=== PATIENT | male | born 1980 | race Caucasian/White ===

== ENCOUNTER 2017-08-14 20:37 | Emergency (ER) | payer OTHER ==
[~2017-08-14] VITALS: Ht 177.8 cm; Wt 108.9 kg
[~2017-08-14 20:37] MED LIST: ACETAMINOPHEN-1 EAC1 PO; ALBUTEROL INHAL17 GM INH; APAP500 PO; AUGMENTIN 875875 MG PO; AZITHROMYCIN 2250 MG PO; BENADRYL25 MG PO; CHERATUSSIN DA480 ML PO; CLEOCIN HCL150 MG PO; DOXYCYCLINE 10100 M1 PO; DOXYCYCLINE 10100 MG PO; HYDROCODONE-AP1 EAC6 PO; HYDROCODONE-APA1 TA1 PO; IBUPROFEN 600600 M1 PO; IBUPROFEN 800800 M1 PO; NEXIUM40 MG; NEXIUM40 MG PO; NOHOMEMEDICATIONS; NORCO 5-325 TA1 EACH PO; PERCOCET PO; PREDNISONE 20 M20 M1 PO; ULTRAM ER100 MG; VENTOLIN HFA 1818 GM INH; ZPAK PO
[2017-08-14 22:44] LABS: ABSOLUTE EOSINOPHILS 0.2 thou/uL (0.0-0.7); ABSOLUTE LYMPHOCYTES 2.8 thou/uL (0.8-5.3); ABSOLUTE MONOCYTES 0.6 thou/uL (0.0-1.2); ABSOLUTE NEUTROPHILS 3.3 thou/uL (1.6-8.1); BASOPHILS 0.5 %; HEMOGLOBIN 15.1 gm/dL (14.0-18.0); LYMPHOCYTES 40.4 %; MCH 31.7 pg (26.0-34.0); MCHC 35.1 g/dL (28.0-37.0); MCV 90.2 fL (80.0-100.0); MONOCYTES 8.7 %; MPV 8.1 fl. (7.2-11.1); NUCLEATED RBCS 0 /100WBC; PLATELET COUNT* 247 thou/uL (150-400); POLYS 47.4 %; RBC 4.76 mil/uL (4.50-6.00); RDW-CV 12.6 % (10.5-14.5)
[2017-08-14 22:52] LABS: URINE BILIRUBIN NEGATIVE (Negative); URINE BLOOD NEGATIVE (Negative); URINE CLARITY CLEAR; URINE COLOR YELLOW; URINE GLUCOSE-RANDOM NEGATIVE (Negative); URINE KETONES NEGATIVE (Negative); URINE LEUKOCYTES-REFLEX NEGATIVE (Negative); URINE NITRITE-REFLEX NEGATIVE (Negative); URINE PROTEIN NEGATIVE (Negative); URINE UROBILINOGEN 0.2 E.U./dl (0.2-1.0)
[2017-08-14 23:18] LABS: CALCIUM 8.4 mg/dL (8.5-10.1); POTASSIUM 3.6 mmol/L (3.5-5.1)
[2017-08-14 23:22] LABS: ALBUMIN 3.7 g/dL (3.4-5.0); TOTAL BILIRUBIN 0.4 mg/dL (<0.1-1.0); TOTAL PROTEIN 6.8 g/dL (6.4-8.2)
[2017-08-15 00:44] VITALS: BP 104/61
== END 2017-08-15 00:47 | disposition home or self-care (01) ==
LOC: M.ERS 20:37
PROVIDERS: Physician Assistant
DX: R10.84 Generalized abdominal pain (principal); K21.9 Gastro-esophageal reflux disease without esophagitis; I25.10 Atherosclerotic heart disease of native coronary artery without angina pectoris; F17.210 Nicotine dependence, cigarettes, uncomplicated; Z90.49 Acquired absence of other specified parts of digestive tract; Z86.14 Personal history of Methicillin resistant Staphylococcus aureus infection; Z88.8 Allergy status to other drugs, medicaments and biological substances; Z88.2 Allergy status to sulfonamides

== ENCOUNTER 2018-02-20 15:30 | Emergency (ER) | payer OTHER ==
[~2018-02-20] VITALS: Ht 177.8 cm; Wt 109.3 kg
[2018-02-20 15:45] LABS: ABSOLUTE BASOPHILS 0.1 thou/uL (0.0-0.2); ABSOLUTE EOSINOPHILS 0.1 thou/uL (0.0-0.7); ABSOLUTE LYMPHOCYTES 2.5 thou/uL (0.8-5.3); ABSOLUTE MONOCYTES 0.4 thou/uL (0.0-1.2); ABSOLUTE NEUTROPHILS 6.2 thou/uL (1.6-8.1); BASOPHILS 0.7 %; EOSINOPHILS 0.7 %; HEMATOCRIT 44.3 % (42.0-52.0); HEMOGLOBIN 15.5 gm/dL (14.0-18.0); MCH 31.3 pg (26.0-34.0); MCHC 35.1 g/dL (28.0-37.0); MCV 89.4 fL (80.0-100.0); MONOCYTES 4.4 %; MPV 7.7 fl. (7.2-11.1); NUCLEATED RBCS 0 /100WBC; PLATELET COUNT* 296 thou/uL (150-400); POLYS 67.2 %; RBC 4.95 mil/uL (4.50-6.00); RDW-CV 12.5 % (10.5-14.5); WBC 9.3 thou/uL (4.0-11.0)
[2018-02-20 15:55] LABS: APTT 28.5 Seconds (25.0-31.3); INR 1.1; PROTIME 10.4 Seconds (9.20-11.50)
[2018-02-20 16:04] LABS: ANION GAP 8 mmol/L (7-16); BUN 7 mg/dL (7-18); CALCIUM 8.5 mg/dL (8.5-10.1); CHLORIDE 103 mmol/L (98-107); CO2 25 mmol/L (21-32); CREATININE 1.1 mg/dL (0.6-1.3); GLUCOSE 145 mg/dL (70-99); POTASSIUM 3.5 mmol/L (3.5-5.1); SODIUM 136 mmol/L (136-145)
[2018-02-20 16:23] LABS: ALBUMIN 3.7 g/dL (3.4-5.0); ALKALINE PHOSPHATASE 52 U/L (46-116); CK-MB MASS 0.7 ng/mL (<0.5-3.6); LIPASE 119 U/L (73-393); NT-PRO BRAIN NAT PEPTIDE 9 pg/mL (<300); SGOT 13 U/L (15-37); SGPT 30 U/L (30-65); TOTAL BILIRUBIN 0.5 mg/dL (<0.1-1.0); TOTAL PROTEIN 7.1 g/dL (6.4-8.2); TROPONIN-I LEVEL <0.06 ng/mL (<0.06)
[2018-02-20 16:34] VITALS: BP 122/78
--- NOTE | 2018-02-21 10:34 | EKG ---
[place] [address] ELECTROCARDIOGRAM REPORT Name: DARREN KEYES [id number] Admission: 02/20/18 Attend Phys: Discharge: 02/20/18 Date of : 84 Report #: [id number] THIS REPORT FOR: //name// [facility] ED Test Date: 2018-02-20 Test Time: 15:31:47 Pat Name: DARREN KEYES Department: Room: Gender: M [employer] Painter: OSBALDO : 1980 Requested By: Zack Hernandez Order Number: [id number] MD: Natan Mccallum Measurements Intervals [place] Rate: 104 P: 45 MN: 169 QRS: 91 QRSD: 112 T: 10 QT: 334 QTc: 440 Interpretive Statements Sinus tachycardia Borderline intraventricular conduction delay Compared to ECG 09/28/2016 16:47:08 Sinus rhythm no longer present Electronically Signed On 02-21-2018 10:34:03 CDT by Natan Mccallum [email or web address] <ELECTRONICALLY SIGNED> By: Natan Mccallum MD, [facility] 02/21/18 1034 1531 30 Natan Mccallum MD, FACC /EPI
== END 2018-02-20 16:36 | disposition home or self-care (01) ==
LOC: M.ERS 15:30
PROVIDERS: Family Medicine
DX: R07.89 Other chest pain (principal); K21.9 Gastro-esophageal reflux disease without esophagitis; I25.10 Atherosclerotic heart disease of native coronary artery without angina pectoris; F17.210 Nicotine dependence, cigarettes, uncomplicated; Z88.2 Allergy status to sulfonamides; Z88.8 Allergy status to other drugs, medicaments and biological substances; Z90.49 Acquired absence of other specified parts of digestive tract; Z86.14 Personal history of Methicillin resistant Staphylococcus aureus infection

== ENCOUNTER 2018-05-29 05:11 | Emergency (ER) | payer OTHER ==
[~2018-05-29] VITALS: Ht 177.8 cm; Wt 93.0 kg
[2018-05-29 06:45] VITALS: BP 113/66
== END 2018-05-29 06:45 | disposition home or self-care (01) ==
LOC: M.ERS 05:11
DX: R51 Headache (principal); R11.2 Nausea with vomiting, unspecified; K21.9 Gastro-esophageal reflux disease without esophagitis; I25.10 Atherosclerotic heart disease of native coronary artery without angina pectoris; F17.210 Nicotine dependence, cigarettes, uncomplicated; Z86.14 Personal history of Methicillin resistant Staphylococcus aureus infection; Z90.49 Acquired absence of other specified parts of digestive tract; Z88.2 Allergy status to sulfonamides; Z88.8 Allergy status to other drugs, medicaments and biological substances

== ENCOUNTER 2018-09-29 11:39 | Emergency (ER) | payer OTHER ==
[~2018-09-29] VITALS: Ht 177.8 cm; Wt 104.3 kg
[2018-09-29 12:55] LABS: ABSOLUTE EOSINOPHILS 0.1 thou/uL (0.0-0.7); ABSOLUTE LYMPHOCYTES 3.6 thou/uL (0.8-5.3); ABSOLUTE MONOCYTES 0.7 thou/uL (0.0-1.2); ABSOLUTE NEUTROPHILS 6.8 thou/uL (1.6-8.1); BASOPHILS 0.4 %; EOSINOPHILS 0.9 %; HEMOGLOBIN 17.9 gm/dL (14.0-18.0); MCH 31.1 pg (26.0-34.0); MCV 88.7 fL (80.0-100.0); NUCLEATED RBCS 0 /100WBC; PLATELET COUNT* 319 thou/uL (150-400); POLYS 60.7 %; RBC 5.75 mil/uL (4.50-6.00); RDW-CV 12.8 % (10.5-14.5); WBC 11.3 thou/uL (4.0-11.0)
[2018-09-29 13:14] LABS: ALBUMIN 4.4 g/dL (3.4-5.0); CALCIUM 9.2 mg/dL (8.5-10.1); CREATININE 1.1 mg/dL (0.6-1.3); POTASSIUM 3.8 mmol/L (3.5-5.1); TOTAL BILIRUBIN 0.6 mg/dL (<0.1-1.0); TOTAL PROTEIN 8.3 g/dL (6.4-8.2)
[2018-09-29 14:02] LABS: URINE BILIRUBIN NEGATIVE (Negative); URINE BLOOD NEGATIVE (Negative); URINE CLARITY CLEAR; URINE COLOR YELLOW; URINE GLUCOSE-RANDOM NEGATIVE (Negative); URINE KETONES NEGATIVE (Negative); URINE LEUKOCYTES-REFLEX NEGATIVE (Negative); URINE NITRITE-REFLEX NEGATIVE (Negative); URINE PROTEIN NEGATIVE (Negative); URINE UROBILINOGEN 0.2 E.U./dl (0.2-1.0)
[2018-09-29] MEDS ORDERED: NORCO 5-325 TA1 EACH PO (14:02)
[2018-09-29] MEDS ORDERED: IBUPROFEN 800800 M1 PO (14:02)
[2018-09-29 14:25] VITALS: BP 120/71
== END 2018-09-29 14:26 | disposition home or self-care (01) ==
LOC: M.ERS 11:39
PROVIDERS: Physician Assistant
DX: R10.31 Right lower quadrant pain (principal); F17.210 Nicotine dependence, cigarettes, uncomplicated; K21.9 Gastro-esophageal reflux disease without esophagitis; I25.10 Atherosclerotic heart disease of native coronary artery without angina pectoris; Z88.2 Allergy status to sulfonamides; Z90.49 Acquired absence of other specified parts of digestive tract; Z88.1 Allergy status to other antibiotic agents; Z88.8 Allergy status to other drugs, medicaments and biological substances

== ENCOUNTER 2019-09-24 13:26 | Emergency (ER) | payer OTHER ==
[~2019-09-24] VITALS: Ht 177.8 cm; Wt 104.3 kg
[2019-09-24 14:25] LABS: ABSOLUTE BASOPHILS 0.1 thou/uL (0.0-0.2); ABSOLUTE EOSINOPHILS 0.1 thou/uL (0.0-0.7); ABSOLUTE LYMPHOCYTES 2.3 thou/uL (0.8-5.3); ABSOLUTE MONOCYTES 0.6 thou/uL (0.0-1.2); ABSOLUTE NEUTROPHILS 6.4 thou/uL (1.6-8.1); BASOPHILS 0.7 %; EOSINOPHILS 0.6 %; HEMATOCRIT 45.7 % (42.0-52.0); HEMOGLOBIN 16.3 gm/dL (14.0-18.0); LYMPHOCYTES 24.2 %; MCH 31.6 pg (26.0-34.0); MCHC 35.6 g/dL (28.0-37.0); MCV 88.5 fL (80.0-100.0); MONOCYTES 6.5 %; MPV 8.3 fl. (7.2-11.1); NUCLEATED RBCS 0 /100WBC; PLATELET COUNT* 290 thou/uL (150-400); RBC 5.16 mil/uL (4.50-6.00); RDW-CV 12.7 % (10.5-14.5); WBC 9.5 thou/uL (4.0-11.0)
[2019-09-24 14:40] LABS: CALCIUM 8.6 mg/dL (8.5-10.1); POTASSIUM 4.2 mmol/L (3.5-5.1); TOTAL BILIRUBIN 0.5 mg/dL (<0.1-1.0); TOTAL PROTEIN 7.3 g/dL (6.4-8.2)
[2019-09-24 15:08] LABS: URINE BILIRUBIN NEGATIVE (Negative); URINE BLOOD NEGATIVE (Negative); URINE CLARITY CLEAR; URINE COLOR YELLOW; URINE GLUCOSE-RANDOM NEGATIVE (Negative); URINE KETONES NEGATIVE (Negative); URINE LEUKOCYTES-REFLEX NEGATIVE (Negative); URINE NITRITE-REFLEX NEGATIVE (Negative); URINE PROTEIN NEGATIVE (Negative); URINE UROBILINOGEN 0.2 E.U./dl (0.2-1.0)
[2019-09-24] MEDS ORDERED: NORCO 5-325 TA1 EAC1 PO (15:48)
[2019-09-24 16:05] VITALS: BP 117/73
== END 2019-09-24 16:06 | disposition home or self-care (01) ==
LOC: M.ERS 13:26
PROVIDERS: Physician Assistant
DX: N50.811 Right testicular pain (principal); K21.9 Gastro-esophageal reflux disease without esophagitis; I25.10 Atherosclerotic heart disease of native coronary artery without angina pectoris; F17.210 Nicotine dependence, cigarettes, uncomplicated; Z98.890 Other specified postprocedural states; Z90.49 Acquired absence of other specified parts of digestive tract; Z86.14 Personal history of Methicillin resistant Staphylococcus aureus infection; Z88.2 Allergy status to sulfonamides; Z88.1 Allergy status to other antibiotic agents; Z88.8 Allergy status to other drugs, medicaments and biological substances

== ENCOUNTER 2019-11-10 17:19 | Emergency (ER) | payer OTHER ==
[~2019-11-10] VITALS: Ht 177.8 cm; Wt 104.3 kg
[~2019-11-10 17:19] MED LIST changes: +NORCO 5-325 TA1 EAC1 PO
[2019-11-10 17:55] LABS: ABSOLUTE EOSINOPHILS 0.1 thou/uL (0.0-0.7); ABSOLUTE LYMPHOCYTES 2.7 thou/uL (0.8-5.3); ABSOLUTE MONOCYTES 0.4 thou/uL (0.0-1.2); ABSOLUTE NEUTROPHILS 6.4 thou/uL (1.6-8.1); BASOPHILS 0.5 %; EOSINOPHILS 0.9 %; HEMATOCRIT 44.7 % (42.0-52.0); HEMOGLOBIN 15.8 gm/dL (14.0-18.0); LYMPHOCYTES 27.9 %; MCH 31.5 pg (26.0-34.0); MCHC 35.3 g/dL (28.0-37.0); MCV 89.1 fL (80.0-100.0); MONOCYTES 4.5 %; MPV 8.2 fl. (7.2-11.1); NUCLEATED RBCS 0 /100WBC; PLATELET COUNT* 275 thou/uL (150-400); POLYS 66.2 %; RBC 5.02 mil/uL (4.50-6.00); RDW-CV 12.3 % (10.5-14.5); WBC 9.7 thou/uL (4.0-11.0)
[2019-11-10 18:02] LABS: CALCIUM 8.4 mg/dL (8.5-10.1); POTASSIUM 4.1 mmol/L (3.5-5.1)
[2019-11-10 18:06] LABS: ALBUMIN 3.8 g/dL (3.4-5.0); TOTAL BILIRUBIN 0.5 mg/dL (<0.1-1.0); TOTAL PROTEIN 7.2 g/dL (6.4-8.2)
[2019-11-10 19:16] LABS: URINE BILIRUBIN NEGATIVE (Negative); URINE BLOOD NEGATIVE (Negative); URINE CLARITY CLEAR; URINE COLOR YELLOW; URINE GLUCOSE-RANDOM NEGATIVE (Negative); URINE KETONES NEGATIVE (Negative); URINE LEUKOCYTES-REFLEX NEGATIVE (Negative); URINE NITRITE-REFLEX NEGATIVE (Negative); URINE PROTEIN NEGATIVE (Negative); URINE SPECIFIC GRAVITY >= 1.030 (1.005-1.030)
[2019-11-10] MEDS ORDERED: NORCO 5-325 TA1 EAC1 PO (19:28)
[2019-11-10] MEDS ORDERED: OMEPRAZOLE 20 M20 M1 PO (19:28)
[2019-11-10] MEDS ORDERED: CARAFATE1 GM PO (19:28)
[2019-11-10] MEDS ORDERED: ONDANSETRON HCL4 M2 PO (19:33)
[2019-11-10 19:43] VITALS: BP 114/66
--- NOTE | 2019-11-11 12:54 | EKG ---
[place] [address] ELECTROCARDIOGRAM REPORT Name: DARREN KEYES Room: [facility]#: [id number] Admission: 11/10/19 Attend Phys: Discharge: 11/10/19 Date of : 84 Date of Service: 11/10/19 175 Report #: [id number] THIS REPORT FOR: //name// [facility] ED Test Date: 2019-11-10 Test Time: 17:59:43 Pat Name: DARREN KEYES Department: Room: Gender: [place] Agent: : 1980 Requested By: Lis Esparza Order Number: [id number] MD: Santos Stallworth Measurements Intervals [place] Rate: 61 P: -2 AR: 150 QRS: 88 QRSD: 112 T: 25 QT: 409 QTc: 412 Interpretive Statements Sinus rhythm Borderline intraventricular conduction delay Borderline low voltage, extremity leads Compared to ECG 02/20/2018 15:31:47 Sinus tachycardia no longer present Electronically Signed On 11-11-2019 12:52:30 CDT by Santos Stallworth [email or web address] <ELECTRONICALLY SIGNED> By: Santos Stallworth MD, FACC 11/11/19 1252 1759 1759 Santos Stallworth MD, [facility] /EPI
== END 2019-11-10 19:44 | disposition home or self-care (01) ==
LOC: M.ERS 17:19
PROVIDERS: Nurse Practitioner Family
DX: R10.13 Epigastric pain (principal); I25.10 Atherosclerotic heart disease of native coronary artery without angina pectoris; K21.9 Gastro-esophageal reflux disease without esophagitis; F17.210 Nicotine dependence, cigarettes, uncomplicated; Z90.49 Acquired absence of other specified parts of digestive tract; Z88.5 Allergy status to narcotic agent; Z86.14 Personal history of Methicillin resistant Staphylococcus aureus infection; Z88.1 Allergy status to other antibiotic agents; Z88.2 Allergy status to sulfonamides; Z88.8 Allergy status to other drugs, medicaments and biological substances

== ENCOUNTER 2019-11-14 10:21 | Emergency (ER) | payer OTHER ==
[~2019-11-14] VITALS: Ht 177.8 cm; Wt 104.3 kg
[~2019-11-14 10:21] MED LIST changes: +CARAFATE1 GM PO; +OMEPRAZOLE 20 M20 M1 PO; +ONDANSETRON HCL4 M2 PO
[2019-11-14 10:43] LABS: URINE BILIRUBIN NEGATIVE (Negative); URINE BLOOD TRACE (Negative); URINE CLARITY CLEAR; URINE COLOR YELLOW; URINE GLUCOSE-RANDOM NEGATIVE (Negative); URINE KETONES NEGATIVE (Negative); URINE LEUKOCYTES-REFLEX NEGATIVE (Negative); URINE NITRITE-REFLEX NEGATIVE (Negative); URINE PROTEIN NEGATIVE (Negative); URINE SPECIFIC GRAVITY 1.025 (1.005-1.030); URINE UROBILINOGEN 0.2 E.U./dl (0.2-1.0)
[2019-11-14 10:50] LABS: AMP/METHAMP Negative (Negative); BARBITURATES Negative (Negative); BENZODIAZEPINES Negative (Negative); COCAINE Negative (Negative); METHADONE Negative (Negative); OPIATES POSITIVE (Negative); PCP Negative (Negative); THC Negative (Negative)
[2019-11-14 11:04] LABS: ABSOLUTE EOSINOPHILS 0.1 thou/uL (0.0-0.7); ABSOLUTE LYMPHOCYTES 2.1 thou/uL (0.8-5.3); ABSOLUTE MONOCYTES 0.6 thou/uL (0.0-1.2); ABSOLUTE NEUTROPHILS 9.8 thou/uL (1.6-8.1); BASOPHILS 0.4 %; EOSINOPHILS 0.4 %; HEMATOCRIT 46.1 % (42.0-52.0); HEMOGLOBIN 16.2 gm/dL (14.0-18.0); LYMPHOCYTES 16.7 %; MCH 30.9 pg (26.0-34.0); MCHC 35.1 g/dL (28.0-37.0); MCV 88.1 fL (80.0-100.0); MONOCYTES 4.6 %; MPV 8.2 fl. (7.2-11.1); NUCLEATED RBCS 0 /100WBC; PLATELET COUNT* 274 thou/uL (150-400); POLYS 77.9 %; RBC 5.23 mil/uL (4.50-6.00); RDW-CV 12.3 % (10.5-14.5); WBC 12.6 thou/uL (4.0-11.0)
[2019-11-14 11:12] LABS: CALCIUM 8.7 mg/dL (8.5-10.1); CREATININE 1.1 mg/dL (0.6-1.3); POTASSIUM 3.9 mmol/L (3.5-5.1)
[2019-11-14 11:16] LABS: TOTAL BILIRUBIN 0.6 mg/dL (<0.1-1.0); TOTAL PROTEIN 7.3 g/dL (6.4-8.2)
[2019-11-14] MEDS ORDERED: ULTRAM 50MG TAB50 MG PO (12:38)
[2019-11-14 12:49] VITALS: BP 128/74
== END 2019-11-14 12:50 | disposition home or self-care (01) ==
LOC: M.ERS 10:21
PROVIDERS: Personal Emergency Response Attendant
DX: R10.13 Epigastric pain (principal); R11.2 Nausea with vomiting, unspecified; K21.9 Gastro-esophageal reflux disease without esophagitis; I25.10 Atherosclerotic heart disease of native coronary artery without angina pectoris; F17.210 Nicotine dependence, cigarettes, uncomplicated; Z88.2 Allergy status to sulfonamides; Z88.1 Allergy status to other antibiotic agents; Z88.8 Allergy status to other drugs, medicaments and biological substances; Z86.14 Personal history of Methicillin resistant Staphylococcus aureus infection; Z90.49 Acquired absence of other specified parts of digestive tract; Z79.899 Other long term (current) drug therapy

== ENCOUNTER 2020-04-24 10:14 | Emergency (ER) | payer OTHER ==
[~2020-04-24] VITALS: Ht 177.8 cm; Wt 86.2 kg
[~2020-04-24 10:14] MED LIST changes: +ULTRAM 50MG TAB50 MG PO
[2020-04-24 11:37] VITALS: BP 148/72
== END 2020-04-24 11:38 | disposition home or self-care (01) ==
LOC: M.ERS 10:14
DX: S00.03XA Contusion of scalp, initial encounter (principal); I25.10 Atherosclerotic heart disease of native coronary artery without angina pectoris; K21.9 Gastro-esophageal reflux disease without esophagitis; Z90.49 Acquired absence of other specified parts of digestive tract; Z86.14 Personal history of Methicillin resistant Staphylococcus aureus infection; W17.89XA Other fall from one level to another, initial encounter; Y93.89 Activity, other specified; Y92.89 Other specified places as the place of occurrence of the external cause; Y99.8 Other external cause status